=== PATIENT | female | born 1970 | race Caucasian/White ===

== ENCOUNTER 2018-09-09 09:49 | Emergency (ER) | payer MEDICARE ==
[~2018-09-09] VITALS: Ht 157.5 cm; Wt 45.5 kg
[2018-09-09 09:54] VITALS: BP 125/61
[2018-09-09] MEDS ORDERED: CLON1TAB PO (10:04)
[2018-09-09] MEDS ORDERED: LAMO25TA6 PO (10:04)
[2018-09-09] MEDS ORDERED: AMPH30TA2 PO (10:04)
--- NOTE | 2018-09-09 10:04 | NUR ---
BIB EMS FROM HOME. GLF LAST NIGHT, LEFT ANKLE PAIN. UNABLE TO AMBULATE THIS AM, INCREASED SWELLING AND ECCHYMOSIS. DP PULSE 4+, DISTAL CSM+. EMS GAVE 600MG IBUPROFEN AND 500MG TYLENOL PO MAXILLOFACIAL PATHOLOGY. CALL LIGHT W/I REACH. LEFT FOOT ELEVATED AND ICE APPLIED
--- NOTE | 2018-09-09 10:09 | NUR ---
pa to bedside for assessment.
--- NOTE | 2018-09-09 11:14 | NUR ---
crutches and education on use provided to pt. all questions answered.
== END 2018-09-09 11:48 | disposition home or self-care (01) ==
LOC: MERGE 09:49 → ED 11:26
DX: S93.492A Sprain of other ligament of left ankle, initial encounter (principal); Z90.710 Acquired absence of both cervix and uterus; F17.200 Nicotine dependence, unspecified, uncomplicated; W01.0XXA Fall on same level from slipping, tripping and stumbling without subsequent striking against object, initial encounter; Y93.89 Activity, other specified; Y92.330 Ice skating rink (indoor) (outdoor) as the place of occurrence of the external cause; Y99.8 Other external cause status
CPT/HCPCS: 99283